=== PATIENT | male | born 1970 | race Two or more races ===

== ENCOUNTER 2023-12-28 15:52 | Emergency (ER) | payer OTHER ==
[~2023-12-28] VITALS: Ht 165.1 cm; Wt 74.8 kg
[2023-12-28 16:13] VITALS: BP 131/72; TEMP 98
[2023-12-28] MEDS ORDERED: IBUPROFEN 600 MG TABLET ONE (16:56)
[2023-12-28] MEDS ORDERED: HYDROCODONE/APAP 5/325MG TABLET ONE (16:56)
[2023-12-28] MEDS: IBUPROFEN 600 MG TABLET PO ONE (16:57)
[2023-12-28] MEDS: HYDROCODONE/APAP 5/325MG TABLET PO ONE (17:00)
[2023-12-28] MEDS ORDERED: IBUP-1953 PO (17:12)
[2023-12-28] MEDS ORDERED: HYDR-3972 PO (17:12)
[2023-12-28 17:37] VITALS: O2SAT 97
== END 2023-12-28 17:38 | disposition home or self-care (01) ==
LOC: ER 16:00
DX: S62.364A Nondisplaced fracture of neck of fourth metacarpal bone, right hand, initial encounter for closed fracture (principal); S62.366A Nondisplaced fracture of neck of fifth metacarpal bone, right hand, initial encounter for closed fracture; W22.01XA Walked into wall, initial encounter; Y93.89 Activity, other specified; Y92.89 Other specified places as the place of occurrence of the external cause; Y99.8 Other external cause status
CPT/HCPCS: 73130-TC